=== PATIENT | female | born 1980 | race Caucasian/White ===

== ENCOUNTER 2020-08-05 19:02 | Emergency (ER) | payer OTHER ==
[~2020-08-05] VITALS: Ht 175.3 cm; Wt 68.0 kg
[2020-08-05 19:13] VITALS: BP_SYST 143
[2020-08-05] MEDS ORDERED: DOXY100T2 PO (19:57)
[2020-08-05 20:04] VITALS: BP_SYST 122
== END 2020-08-05 20:04 | disposition home or self-care (01) ==
LOC: SED 19:02
DX: S51.852A Open bite of left forearm, initial encounter (principal); W55.01XA Bitten by cat, initial encounter; Y93.89 Activity, other specified; Y92.89 Other specified places as the place of occurrence of the external cause; Y99.8 Other external cause status
CPT/HCPCS: 99283